=== PATIENT | male | born 1945 | race Caucasian/White ===

== ENCOUNTER 2016-12-09 06:09 | Day surgery (SDC) | payer MEDICARE ==
[2016-12-06 12:27] LABS: HEMATOCRIT 42.9 % (40.0-51.0); HEMOGLOBIN 14.5 g/dL (13.6-17.8)
[2016-12-06 12:37] LABS: ASCORBIC ACID (UR NOT ORDER) NEG (NEG); BILIRUBIN, URINE NEGATIVE (NEG); KETONE, URINE NEGATIVE (NEG); LEUKOCYTE ESTERASE(NOT OR NEG (NEG); WBC (NOT ORDERED) (RFLEX) 1 (0-5)
[2016-12-06 12:38] LABS: BUN (BLOOD UREA NITROGEN) 27 MG/DL (6-23); CALCIUM, SERUM 9.3 MG/DL (8.5-10.4); CHLORIDE, SERUM 107 MMOL/L (96-112); CO2 (CARBON DIOXIDE) 25 MMOL/L (24-34); CREATININE 1.12 MG/DL (0.70-1.30); GFR AFRICAN AMERICAN 76 ML/MIN (>=60); GFR NON AFRICAN AMERICAN 65 ML/MIN (>=60); GLUCOSE, SERUM 267 MG/DL (60-99); POTASSIUM, SERUM 4.9 MMOL/L (3.5-5.3); SODIUM, SERUM 140 MMOL/L (135-148)
[2016-12-06 17:35] LABS: ALBUMIN 3.5 G/DL (3.5-5.0); ALKALINE PHOSPHATASE 95 U/L (45-117); INDIRECT BILIRUBIN(NOT ORDER) 0.5 MG/DL (0.1-0.9); SGOT(AST) 30 U/L (5-40); SGPT(ALT) 40 U/L (5-65); TOTAL BILIRUBIN 0.6 MG/DL (0-1.2); TOTAL PROTEIN 6.8 G/DL (6.0-8.5)
[2016-12-06 17:36] LABS: DIRECT BILIRUBIN 0.1 MG/DL (0.0-0.4)
--- NOTE | ~2016-12-09 | OP ---
Record Of Operation [facility] [address] [place]. [address] NAME: REY MOLINA : 43 STATUS : REG [facility]#: [id number] AGE: 71 ADM/REG DATE : 12/09/16 MR#: [id number] REPORT SERV DATE: 12/09/16 DICTATED BY: MATT BORGES JR. DATE: 12/09/16 REPORT STATUS : Draft TRANSCRIBED BY: MODL DATE: 12/09/16 DATE OF PROCEDURE: 12/09/2016 SURGEON: Matt Borges M.D. PREOPERATIVE DIAGNOSIS: Left nephrolithiasis with recurrent urinary tract infection. POSTOPERATIVE DIAGNOSIS: Left nephrolithiasis with recurrent urinary tract infection. PROCEDURE PERFORMED: Cystoscopy, left retrograde pyelogram, dilation of left ureteral orifice, left ureteroscopy with laser ablation of left renal stone fragments and removal of stone fragments, double-J stent placement. COMPLICATIONS: None. CONSULTATIONS: None. ANESTHESIA: General with laryngeal mask airway. SPECIMENS: Left renal stone fragments. DRAINS: 6 x 26 cm double-J stent. ESTIMATED BLOOD LOSS: None. INDICATION: Mr. Molina is a 71-year-old gentleman, whom I have been following with recurrent urinary tract infections. He does have three stones in the left kidney that were seen on CT scan. He comes today for removal of those stones as a possible nidus for infection. He has had a negative bladder workup and did not find any lower tract evidence for his recurrent UTIs. PROCEDURE IN DETAIL: After the patient was identified and proper informed consent was obtained, he was taken to the operating room. General anesthesia was performed without complication using laryngeal mask airway. He was then prepped and draped in the normal sterile fashion in the lithotomy position. Cystoscopic examination of the urethra and bladder was normal. He did have some trilobar hypertrophy, but otherwise negative. Bladder mucosa was normal. The left ureteral orifice was identified and cannulated with a 5-Luxembourger open-ended catheter. Retrograde pyelogram was performed which revealed a normal course and caliber to the left ureter without hydronephrosis. The stones were visualized on fluoroscopic imaging, one in the upper pole, one in the mid pole, and one in the lower pole. A guidewire was advanced through the open-ended catheter up to the kidney and the 14-Luxembourger ureteral access sheath was placed. The flexible ureteroscope was then advanced up to the renal pelvis and the stones were visualized. I fragmented each of the stones using a 200 micron Holmium laser fiber into very small particles several of those particles were removed for chemical analysis. Once I was satisfied that all stone fragments had been either removed or were too small to fit into the basket for retrieval, I removed the ureteroscope Record Of Operation [facility] [id number] [place]. [address] NAME: REY MOLINA : 43 STATUS : REG [facility] PAT#: [id number] AGE: 71 ADM/REG DATE : 12/09/16 MR#: [id number] REPORT SERV DATE: 12/09/16 DICTATED BY: MATT BORGES JR. DATE: 12/09/16 REPORT STATUS : Draft TRANSCRIBED BY: NATHALIE DATE: 12/09/16 and the endoscopic sheath and placed a double-J stent 6 x 26 cm in length leaving a string in place for removal next week. The bladder was drained. The patient was awakened in the operating room and transferred to the postanesthesia care unit in stable condition. SARAH BETH/NATHALIE Matt Borges Jr., M.D. / [id number] CC: Eddie Rivas Jr., M.D.
[~2016-12-09 06:09] MED LIST: ALIGN4 MG PO; ASA5GR PO; ASAB PO; Azithromycin PO; BENTYL20 PO; BETAP120 PO; BETAPACE80 PO; C1 PO; C5 PO; CIP5 PO; COLCH6 PO; COUMADIN7.5 MG PO; DIABETA5 PO; DOXYCYCLINE PO; GLUCOV5 PO; GLUCPH PO; HUMALOGPEN SC; HUMAMIXPEN SC; IMOD PO; KLOR-CON M2020 MEQ PO; L20 PO; LANTUS SC; LANTUSCART SC; LANTUSCART SQ; LOFIB160 PO; LOP25 PO; MAGNEBIND PO; MAGOX4 PO; NORCO1 TA2 PO; PLAVIX PO; PRAVAC PO; SPIRO25 PO; TOUJEO; TOUJEO SC; TRICOR145 PO; VASOTEC20 MG PO; Z300 PO
[2016-12-09 06:47] LABS: INTERNATIONAL NORMAL RATI 1.6 UNITS (-); PROTIME (NOT ORD) 18.6 SEC (12.0-14.5)
[2016-12-15 19:09] LABS: STONE COMPOSITION TWO DNR (())
== END 2016-12-09 18:17 | disposition home or self-care (01) ==
LOC: SDC 06:09
PROVIDERS: Urology
PROC: BT1FYZZ Fluoroscopy of Left Kidney, Ureter and Bladder using Other Contrast (ICD-10-PCS; 2016-12-09)
PROC: 0T778DZ Dilation of Left Ureter with Intraluminal Device, Via Natural or Artificial Opening Endoscopic (ICD-10-PCS; principal; 2016-12-09 07:45)
PROC: 0TC18ZZ Extirpation of Matter from Left Kidney, Via Natural or Artificial Opening Endoscopic (ICD-10-PCS; 2016-12-09 07:45)
DX: N20.0 Calculus of kidney (principal); N39.0 Urinary tract infection, site not specified; I11.0 Hypertensive heart disease with heart failure; I50.9 Heart failure, unspecified; E11.9 Type 2 diabetes mellitus without complications; I25.10 Atherosclerotic heart disease of native coronary artery without angina pectoris; E78.5 Hyperlipidemia, unspecified; I48.0 Paroxysmal atrial fibrillation; E66.01 Morbid (severe) obesity due to excess calories; M19.90 Unspecified osteoarthritis, unspecified site; M10.9 Gout, unspecified; I47.2 Ventricular tachycardia; Z68.36 Body mass index [BMI] 36.0-36.9, adult; Z79.01 Long term (current) use of anticoagulants; G47.33 Obstructive sleep apnea (adult) (pediatric); Z88.2 Allergy status to sulfonamides; Z88.5 Allergy status to narcotic agent
CPT/HCPCS: 74420; 80048; 80076; 81001; 82365; 82962; 85014; 85018; 85610; 93005; C1758; C1769; C2617; J2250; J2405; J2710; J3010; Q9967